=== PATIENT | female | born 1955 | race Caucasian/White ===

== ENCOUNTER → 2018-09-04 | Outpatient (CLI) | payer BC ==
[~2018-09-04] MED LIST: ASACOL400 MG PO; CLIMARA1 EAC1; LEVOXYL112 MCG PO; RAMIPRIL5 MG PO
--- NOTE | 2018-09-05 10:44 | Diagnostic Imaging Report ---
EXAM: Bone mineral density study 09/04/2018 8:21 AM INDICATION: ^OSTEOPENIA COMPARISON: Previous DEXA 01/23/2016. Baseline DEXA 01/17/2015 FINDINGS: Evaluation of the left hip and lumbar spine was performed. The study is technically adequate. The patient's fracture risk is compared to an age-matched control. The patient denies prior surgery/fracture of the spine, hips or forearm. LEFT HIP * Femoral neck bone mineral density: 0.674 gm/cm2, T-score is -1.6, Z-score is -0.2. * Total bone mineral density: 0.789 gm/cm2, T-score is -1.3, Z-score is -0.1. * BMD change versus baseline is -7.2% and the BMD change versus previous is -4.0%. LUMBAR SPINE * Total bone mineral density: 1.142 gm/cm2, T-score is 0.9, Z-score is 2.5. * BMD change versus baseline is -7.0% and the BMD change versus previous is -5.1%. IMPRESSION: 1. LEFT HIP: Bone mineralization by WHO Classification is osteopenia, the fracture risk is moderate. 2. LUMBAR SPINE: Bone mineralization by WHO Classification is normal, the fracture risk is not increased. 3. There has been significant loss of bone mineral density at the left hip and lumbar spine since previous exam. 4. FRAX calculated 10 year risk major osteoporotic fracture 8.6%, hip fracture 0.8%. <T score: NL = -1 or higher Osteopenia = -1 to -2.5 Osteoporosis = -2.5 or lower Z score: < - 2 concerning for path> Signed by: Dr. Jordan Ruffin M.D. on 09/05/2018 10:40 AM
== END ==
LOC: MAMMO 08:07
PROVIDERS: ATTEND Obstetrics & Gynecology
DX: Z12.31 Encounter for screening mammogram for malignant neoplasm of breast (principal); M85.80 Other specified disorders of bone density and structure, unspecified site
CPT/HCPCS: 77067; 77080

== ENCOUNTER → 2018-09-26 | Outpatient (CLI) | payer BC ==
--- NOTE | 2018-09-27 09:42 | Diagnostic Imaging Report ---
#[id number] - MGDXRT #UNILATERAL RIGHT DIGITAL DIAGNOSTIC MAMMOGRAM WITH SPOT COMPRESSION: 09/26/2018 Comparison is made to exams dated: 09/04/2018 mammogram and 01/23/2016 mammogram - [facility]. Current study contains 2 films. There are scattered fibroglandular elements in the right breast. The possible mass seen on the prior study appears to "press out" with focal spot compression. No mass is identified. No significant masses, calcifications, or other findings are seen in the breast. There has been no significant interval change. IMPRESSION: BENIGN There is no mammographic evidence of malignancy. A 1 year screening mammogram is recommended. The patient will be notified by letter of the results. Piter Sky Jr., D.O. cw/:09/26/2018 14:58:38 Commercial Accountant: Erica SHEA)([place]), [facility] letter sent: Normal Exam Mammogram BI-RADS: 2 Benign
== END ==
LOC: MAMMO 13:40
PROVIDERS: ATTEND Obstetrics & Gynecology
DX: R92.8 Other abnormal and inconclusive findings on diagnostic imaging of breast (principal)

== ENCOUNTER → 2019-11-26 | Outpatient (CLI) | payer BC ==
--- NOTE | 2019-11-26 09:13 | Diagnostic Imaging Report ---
Exam: Bone mineral density study. History: Osteopenia. Comparison: September 04, 2018 Discussion: Evaluation of the left hip and lumbar spine was performed utilizing DEXA Hologic bone densitometer. The study is technically adequate. Left hip total bone mineral density: 0.776gm/cm2, T-score is -1.4, Z-score is -0.2. Left hip femoral neck bone mineral density: 0.693gm/cm2, T-score is -1.4, Z-score is 0.1. Lumbar spine total bone mineral density:1.105gm/cm2, T-score is0.5, Z-score is 2.2. Impression: 1. Osteopenia of the left hip, fracture risk is increased 2. Normal bone mineral density of the lumbar spine, fracture risk is not increased The BMD change versus baseline is -8.8% and the BMD change versus previous -1.7% . Least significant change (LSC) for bone mineral density as provided by control supervisor is 0.023 g/cm2 for lumbar spine and 0.027 g/cm2 for total hip. 10 -year fracture risk per WHO Fracture Risk Assessment Tool (FRAX) for: Major osteoporotic fracture is 8.6 Hip fracture is 0.8% The above fracture probability is calculated for an untreated patient. Fracture probably may be lower if the patient has received treatment. All treatment decisions require clinical judgment and consideration of individual patient factors, including patient preferences, comorbidities, previous drug use and risk factors not captured in the FRAX model (e.g. frailty, falls, vitamin D deficiency, increased bone turnover, interval significant decline in BMD). The patient's fracture risk is compared to an age-matched control. Medical evaluation for secondary causes of low bone bone mineral density may be appropriate. Correlate clinically for the necessity and timing of the next bone mineral density study. Signed by: Dr. Kelton Bucio M.D. on 11/26/2019 9:09 AM
== END ==
LOC: MAMMO 07:59
PROVIDERS: ATTEND Obstetrics & Gynecology
DX: Z12.31 Encounter for screening mammogram for malignant neoplasm of breast (principal); Z13.820 Encounter for screening for osteoporosis
CPT/HCPCS: 77067; 77080

== ENCOUNTER → 2020-11-24 | Outpatient (CLI) | payer BC | LOC: MAMMO 13:16 | PROVIDERS: ATTEND Obstetrics & Gynecology | DX: Z12.31 Encounter for screening mammogram for malignant neoplasm of breast (principal); Z13.820 Encounter for screening for osteoporosis | CPT/HCPCS: 77067; 77080 ==

== ENCOUNTER → 2024-12-31 | Outpatient (REF) | payer MEDICARE, OTHER | LOC: MAMMO 07:55 | PROVIDERS: ATTEND Internal Medicine Endocrinology, Diabetes & Metabolism | DX: Z12.31 Encounter for screening mammogram for malignant neoplasm of breast (principal); M85.88 Other specified disorders of bone density and structure, other site | CPT/HCPCS: 77067; 77080 ==